=== PATIENT | female | born 1985 | race Caucasian/White ===

== ENCOUNTER → 2016-04-15 | Outpatient (CLI) | payer OTHER | LOC: CIMAGING 07:45 | PROVIDERS: ATTEND Obstetrics & Gynecology | DX: T83.32XA Displacement of intrauterine contraceptive device, initial encounter (principal); R10.2 Pelvic and perineal pain | CPT/HCPCS: 76856-PO ==

== ENCOUNTER 2016-07-28 14:22 | Emergency (ER) | payer OTHER ==
[2016-07-28 14:40] VITALS: RESP 16; TEMP 98.8
--- NOTE | 2016-07-28 15:09 | EDPHY ---
H & P Stated Complaint: migraine/nausea/diarrhea since Monday - Personal History LMP (Females 10-55): 1-7 Days Ago Current Tetanus Diphtheria and Acellular Pertussis (TDAP): Yes - Medical/Surgical History Hx Asthma: No Hx Chronic Respiratory Disease: No Hx Diabetes: No Hx Cardiac Disease: No Hx Renal Disease: No Hx Cirrhosis: No Hx Alcoholism: No Hx HIV/AIDS: No Hx Splenectomy or Spleen Trauma: No Other PMH: denies HPI/ROS: CHIEF COMPLAINT: Migraine headache, nausea, hearing loss, diarrhea HISTORY OF PRESENT ILLNESS: This is a 31-year-old female who states she has long history of frequent headaches which she terms migraines which are typically relieved with Excedrin. Over the last 2 weeks she has had issues with a left upper tooth requiring antibiotics and eventually a root canal. She also has been complaining of hearing loss in the left ear for 1 month. She used an [id number] wax removal system with little effect. She reports increasing episodes of dizziness described as spinning and being off balance. Patient developed what she describes as a migraine headache, left-sided in location 4 days ago. She has had several episodes chest tightness which last for 2-3 minutes as well. She presents today for treatment of her headache, loss of hearing in the ear, nausea, diarrhea. Patient denies any fevers, chills, sputum production, chest pain, palpitations, lightheadedness, fainting. She denies any head trauma. She reports she has had headaches similar to today's headache in the past. This is not the worst headache that she has had. She is concerned regarding weight loss. REVIEW OF SYSTEMS: Aside from elements discussed in the HPI, a comprehensive 10-point review of systems was reviewed and is negative. PAST MEDICAL HISTORY: Patient denies. SOCIAL HISTORY: Nonsmoker. Here with her mother. VITAL SIGNS Reviewed by me. GENERAL: Well-developed, well-nourished, complaining of left-sided head pain, difficulty hearing, and nausea. HEENT: Atraumatic. Eyes: PERRL, EOMI, no nystagmus. No icterus. No injection. Left ear: Impacted cerumen against the eardrum. Right ear: Moderate amount of wax in the external auditory canal. Mouth: moist mucous membranes. No erythema or lesions. Neck: No meningitis. Nontender to palpation. No adenopathy. Negative Kernig's. Negative Brudzinski's. No meningismus. LUNGS: Clear to auscultation bilaterally, no wheezes, rhonchi or rales. CARDIAC: Regular rate and rhythm, no rubs, murmurs or gallops. ABDOMEN: Soft, nontender, nondistended, bowel sounds normal. BACK: No CVA tenderness. EXTREMITIES: No trauma. No edema. Range of motion is normal throughout. NEURO: Alert and oriented, cranial nerves II through XII are intact. Motor strength 5 over 5 in all major muscle groups. Sensation intact to light touch. Normal gait. SKIN: Warm and dry, no rash. PSYCHIATRIC: Normal mentation, no agitation. (Tere Cole) Constitutional: Initial Vital Signs Temperature (C) 37.1 C 07/28/16 14:35 Heart Rate 91 07/28/16 14:35 Respiratory Rate 16 07/28/16 14:35 Blood Pressure 115/77 07/28/16 14:35 O2 Sat (%) 95 07/28/16 14:35 O2 Delivery Mode Room Air Allergies/Adverse Reactions: No Known Allergies Allergy (Unverified 07/28/16 14:38) Home Medications: Medication Instructions Recorded AMOXICILLIN 07/28/16 Medical Decision Making - Diagnostics EKG Interpretation: 12-LEAD EKG: Please see the full report in [facility]. My interpretation: Normal sinus rhythm (Tere Cole) ED Course/Re-evaluation: 31-year-old female with a variety of complaints including headache, hearing loss in left ear, dizziness, as well as brief episodes of chest tightness. Patient had IV established. She was treated with Decadron, Reglan, ketorolac, and Benadryl for headache pain. External auditory canal was irrigated. Meclizine was administered. Baseline labs including cbc, chem 7, troponin ordered. Care assumed by Dr Oneal at 3pm. (Tere Cole) 4:40 p.m.The patient's cerumen was disimpacted with water irrigation. Her hearing loss has resolved. Her headache has improved. Her lab work is reassuring. We will continue to observe. 5:40 p.m. patient's symptoms have resolved and she is eager to go home. (Dc Oneal) Differential Diagnosis: After history was obtained, and the physical exam performed, a differential for headache was considered including, but not limited to, subarachnoid hemorrhage, migraine headache, tension headache and infectious causes such as meningitis, sinusitis, encephalitis. (Tere Cole) - Data Points Laboratory Results: Laboratory Results 07/28/16 14:43 07/28/16 14:43 07/28/16 07/28/16 07/28/16 14:43 14:43 14:43 WBC 6.55 10^3/uL 10^3/uL (3.80-9.50) RBC 4.76 10^6/uL 10^6/uL (4.18-5.33) Hgb 13.8 g/dL g/dL (12.6-16.3) Hct 40.5 % % (38.0-47.0) MCV 85.1 fL fL (81.5-99.8) MCH 29.0 pg pg (27.9-34.1) MCHC 34.1 g/dL g/dL (32.4-36.7) RDW 13.4 % % (11.5-15.2) Plt Count 312 10^3/uL 10^3/uL (150-400) MPV 9.4 fL fL (8.7-11.7) Neut % (Auto) 62.8 % % (39.3-74.2) Lymph % (Auto) 27.9 % % (15.0-45.0) Kane % (Auto) 7.3 % % (4.5-13.0) Eos % (Auto) 1.2 % % (0.6-7.6) Baso % (Auto) 0.6 % % (0.3-1.7) Nucleat RBC Rel Count 0.0 % % (0.0-0.2) Absolute Neuts (auto) 4.11 10^3/uL 10^3/uL (1.70-6.50) Absolute Lymphs (auto) 1.83 10^3/uL 10^3/uL (1.00-3.00) Absolute Monos (auto) 0.48 10^3/uL 10^3/uL (0.30-0.80) Absolute Eos (auto) 0.08 10^3/uL 10^3/uL (0.03-0.40) Absolute Basos (auto) 0.04 10^3/uL 10^3/uL (0.02-0.10) Absolute Nucleated RBC 0.00 10^3/uL 10^3/uL (0-0.01) Immature Gran % 0.2 % % (0.0-1.1) Immature Gran # 0.01 10^3/uL 10^3/uL (0.00-0.10) Sodium 143 mEq/L mEq/L (134-144) Potassium 3.8 mEq/L mEq/L (3.5-5.2) Chloride 102 mEq/L mEq/L (97-110) Carbon Dioxide 25 mEq/l mEq/l (22-31) Anion Gap 16 mEq/L mEq/L (8-16) BUN 9 mg/dL mg/dL (7-23) Creatinine 0.5 mg/dL L mg/dL (0.6-1.0) Estimated GFR > 60 Glucose 82 mg/dL mg/dL (70-100) Calcium 9.4 mg/dL mg/dL (8.5-10.4) Troponin I < 0.012 ng/mL ng/mL (0-0.034) Beta HCG, Qual NEGATIVE Medications Given: Discontinued Medications Dexamethasone (Decadron Injection) 10 mg IVP EDNOW ONE Stop: 07/28/16 15:14 Last Admin: 07/28/16 15:14 Dose: 10 mg Diphenhydramine HCl (Benadryl Injection) 25 mg IVP EDNOW ONE Stop: 07/28/16 15:14 Last Admin: 07/28/16 15:45 Dose: 25 mg Sodium Chloride (Ns) 1,000 mls @ 0 mls/hr IV ONCE ONE PRN Reason: Wide Open Stop: 07/28/16 15:11 Last Admin: 07/28/16 15:12 Dose: 1,000 mls Sodium Chloride (Ns) 1,000 mls @ 0 mls/hr IV ONCE ONE; Wide Open PRN Reason: Protocol Stop: 07/28/16 15:14 Last Admin: 07/28/16 15:13 Dose: 1,000 mls Ketorolac Tromethamine (Toradol) 30 mg IVP EDNOW ONE Stop: 07/28/16 15:14 Last Admin: 07/28/16 15:45 Dose: 30 mg Metoclopramide HCl (Reglan Injection) 10 mg IVP EDNOW ONE Stop: 07/28/16 15:14 Last Admin: 07/28/16 15:45 Dose: 10 mg Departure - Departure Disposition: Home, Routine, Self-Care Clinical Impression: Impacted cerumen of left ear Migraine Qualifiers: Migraine type: unspecified Status migrainosus presence: without status migrainosus Intractability: not intractable Qualified Code(s): G43.909 - Migraine, unspecified, not intractable, without status migrainosus Condition: Fair Instructions: Cerumen Impaction (ED), Migraine Headache (ED) Referrals: Patient,NotPresent [Primary Care Provider] - As per Instructions Ladonna Bernard MD [Medical Doctor] - As per Instructions
[2016-07-28] MEDS ORDERED: NS 1,000 ML IV ONE ×2 (15:10→15:13)
--- NOTE | 2016-07-28 15:11 | CPEKG ---
Heart Rate: 83 RR Interval: 723 P-R Interval: 156 QRSD Interval: 74 QT Interval: 392 QTC Interval: 461 P Rosser: 57 QRS Rosser: 64 T Wave Rosser: 55 EKG Severity - NORMAL ECG - EKG Impression: SINUS RHYTHM Electronically Signed By: Dc Oneal 28-Jul-2016 15:43:01
[2016-07-28] MEDS ORDERED: METOCLOPRAMIDE 10 MG/2 ML VIAL IVP ONE (15:13)
[2016-07-28] MEDS ORDERED: DEXAMETHASONE 10 MG/ML VIAL IVP ONE (15:13)
[2016-07-28] MEDS ORDERED: KETOROLAC 30 MG/1 ML SDV IVP ONE (15:13)
[2016-07-28 15:21] LABS: % IMMATURE GRANULYOCYTES 0.2 % (0.0-1.1); ABSOLUTE IMMATURE GRANULOCYTES 0.01 10^3/uL (0.00-0.10); ADD DIFF? NO; ADD MORPH? NO; ADD SCAN? NO; ATYPICAL LYMPHOCYTE FLAG 10 (0-99); FRAGMENT RBC FLAG 0 (0-99); HEMATOCRIT 40.5 % (38.0-47.0); HEMOGLOBIN 13.8 g/dL (12.6-16.3); LEFT SHIFT FLG 0 (0-99); LIPEMIA HEMOLYSIS FLAG 90 (0-99); MEAN CELL HEMOGLOBIN CONCENTR. 34.1 g/dL (32.4-36.7); MEAN CELL VOLUME 85.1 fL (81.5-99.8); MEAN PLATELET VOLUME 9.4 fL (8.7-11.7); PLATELET CLUMPS FLAG 0 (0-99); PLATELET COUNT 312 10^3/uL (150-400); RED BLOOD CELL COUNT 4.76 10^6/uL (4.18-5.33); RED CELL DISTRIBUTION WIDTH 13.4 % (11.5-15.2)
[2016-07-28 15:41] LABS: TROPONIN I < 0.012 ng/mL (0-0.034)
[2016-07-28 16:06] LABS: ANION GAP 16 mEq/L (8-16); CALCIUM 9.4 mg/dL (8.5-10.4); CARBON DIOXIDE 25 mEq/l (22-31); CHLORIDE 102 mEq/L (97-110); CREATININE 0.5 mg/dL (0.6-1.0); GLOMERULAR FILTRATION RATE > 60; GLUCOSE 82 mg/dL (70-100); POTASSIUM 3.8 mEq/L (3.5-5.2); SODIUM 143 mEq/L (134-144)
[2016-07-28 17:47] VITALS: BP 102/74; PULSE 85; O2SAT 94
== END 2016-07-28 17:45 | disposition home or self-care (01) ==
LOC: CED 14:22
PROC: 3E1B78Z Irrigation of Ear using Irrigating Substance, Via Natural or Artificial Opening (ICD-10-PCS; principal; 2016-07-28)
DX: G43.909 Migraine, unspecified, not intractable, without status migrainosus (principal); H61.22 Impacted cerumen, left ear
CPT/HCPCS: 80048-PO; 84484-PO; 84703-PO; 85025-PO; 96374; J1200; J1885; J2765